=== PATIENT | male | born 1970 | race Caucasian/White ===

== ENCOUNTER 2024-03-12 16:05 | Emergency (ER) | payer BC, SELFPAY ==
[2024-03-12 16:06] VITALS: BP 133/65
--- NOTE | 2024-03-12 16:42 | ED.GENMED ---
History of Present Illness
<Nia Rea PA-C - Last Filed: 03/12/24 19:29>
General
Chief Complaint: Abdominal Pain
Source: patient and spouse
Exam Limitations: none
Time Seen by Provider: 03/12/24 16:10
Nursing documentation reviewed up to this point in time: agreed with
History of Present Illness
History of Present Illness:
Patient is a 53-year-old male with history diverticulitis presenting to the emergency department for evaluation of left mid abdominal pain. Patient states symptoms started yesterday evening and been relatively constant and more severe today.
Patient states he did have difficulty sleeping due to pain. Patient did have a fever of 100.9 at home. For which she did take Motrin and Tylenol prior to arrival to emergency department. Patient denies any associated nausea, vomiting, diarrhea,
or constipation. Patient denies any urinary symptoms.
Patient was seen in an urgent care facility this morning where they performed the physical exam and given symptoms were so consistent with patient's prior history of diverticulitis he was started on course of ciprofloxacin/metronidazole. He has
taken 1 dose of each. He was instructed to come to the emergency department he spiked any fever. When patient arrived back home to the urgent care he had a temp of 100.9 and came to the emergency department for further evaluation.
Patient does have a history of diverticulitis�last flare occurring approximately 9 years ago. Patient does state this feels very similar to prior flare of diverticulitis
Past History
<Nia Rea PA-C - Last Filed: 03/12/24 19:29>
Past History
ED Past Medical History: Other (Diverticulitis by history although he's never had a CAT scan or colonoscopy. Hypertension, back pain)
ED Past Surgical History: Other (Hernia, tonsillectomy)
Social History
Tobacco: Non-smoker
Alcohol: Occasional
Personal:
Living: with family
Employment: Employed
Family History
Family History: Other (Hypertension and glaucoma)
Phy Exam
<Nia Rea PA-C - Last Filed: 03/12/24 19:29>
Physical Exam
Physical Exam:
Vitals: Patient's vital signs are stable. Temp of 99.7F
General: Patient is mildly uncomfortable appearing due to pain, no acute distress. Nontoxic-appearing
Skin: Warm and dry, no rashes or lesions
Head: Normocephalic, atraumatic
Eyes: Sclera nonicteric. EOMs intact. No nystagmus.
Throat: Protecting airway
Neck: Normal ROM, no cervical spine tenderness, no meningismus
Cardiac: Regular rate and rhythm, no murmurs.
Pulm: Normal respiratory effort, no wheezes, rales, rhonchi heard on exam.
Abdomen: Abdomen soft. Moderate abdominal tenderness in left mid abdomen with voluntary guarding. No rebound tenderness. No CVA tenderness.
Extremities: No evidence of cyanosis or edema. Great distal pulses
Neuro: Grossly intact.
Psychiatric: Normal affect.
Course
<Nia Rea PA-C - Last Filed: 03/12/24 19:29>
Orders/Labs/Results
Orders:
Orders
03/12/24 16:28
0.9% Sodium Chloride 1000 ml [Nss] 1,000 ml IV BOLUS
Ketorolac [Toradol] 15 mg IV NOW STA
03/12/24 16:29
CT Abd/Pel (IV only)-[facility] only Urgent
Comment: hx diverticulitis
Reason For Exam: L mid/ LLQ abdominal pain
03/12/24 17:11
Complete Blood Count/With Diff Urgent
Comprehensive Metabolic Panel Urgent
Lipase Urgent
Urinalysis Reflex To Culture Urgent
Date Specimen was Collected: 03/12/24
Time Specimen was Collected: 16:37
03/12/24 17:40
Morphine Sulfate 4 mg IV NOW STA
Ondansetron Injectable [Zofran] 4 mg IV NOW STA
Abnormal Lab Results
03/12/24
17:11
RBC 4.46 L 10^6/uL
(4.70-6.10)
Hct 38.3 L %
(39.0-52.0)
MCH 31.6 H pg
(27.0-31.0)
Absolute Neuts (auto) 8.0 H 10^3/uL
(1.4-6.5)
Absolute Lymphs (auto) 1.0 L 10^3/uL
(1.2-3.4)
Absolute Monos (auto) 0.8 H 10^3/uL
(0.1-0.6)
Neutrophils % 81.0 H %
(42.2-75.2)
Lymphocytes % 9.9 L %
(20.5-51.1)
Potassium 3.3 L mmol/L
(3.5-5.1)
Chloride 96 L mmol/L
(98-107)
Glucose 152 H mg/dl
(70-99)
Total Bilirubin 3.2 H mg/dl
(0.2-1.3)
03/12/24 17:11
03/12/24 17:11
Vital Signs
Initial and Last Documented VS:
Initial Vital Signs
Pulse Resp BP Pulse Ox
75 18 133/65 99
03/12/24 16:06 03/12/24 16:06 03/12/24 16:06 03/12/24 16:06
Last Documented Vital Signs
Temp Pulse Resp BP Pulse Ox
99.7 F 75 18 133/65 99
03/12/24 16:45 03/12/24 16:06 03/12/24 16:06 03/12/24 16:06 03/12/24 16:06
<Jennifer Johnson, DO - Last Filed: 03/12/24 18:02>
Orders/Labs/Results
Orders:
Orders
03/12/24 16:28
0.9% Sodium Chloride 1000 ml [Nss] 1,000 ml IV BOLUS
Ketorolac [Toradol] 15 mg IV NOW STA
03/12/24 16:29
CT Abd/Pel (IV only)-[facility] only Urgent
Comment: hx diverticulitis
Reason For Exam: L mid/ LLQ abdominal pain
03/12/24 17:11
Complete Blood Count/With Diff Urgent
Comprehensive Metabolic Panel Urgent
Lipase Urgent
Urinalysis Reflex To Culture Urgent
Date Specimen was Collected: 03/12/24
Time Specimen was Collected: 16:37
03/12/24 17:40
Morphine Sulfate 4 mg IV NOW STA
Ondansetron Injectable [Zofran] 4 mg IV NOW STA
Abnormal Lab Results
03/12/24
17:11
RBC 4.46 L 10^6/uL
(4.70-6.10)
Hct 38.3 L %
(39.0-52.0)
MCH 31.6 H pg
(27.0-31.0)
Absolute Neuts (auto) 8.0 H 10^3/uL
(1.4-6.5)
Absolute Lymphs (auto) 1.0 L 10^3/uL
(1.2-3.4)
Absolute Monos (auto) 0.8 H 10^3/uL
(0.1-0.6)
Neutrophils % 81.0 H %
(42.2-75.2)
Lymphocytes % 9.9 L %
(20.5-51.1)
Potassium 3.3 L mmol/L
(3.5-5.1)
Chloride 96 L mmol/L
(98-107)
Glucose 152 H mg/dl
(70-99)
Total Bilirubin 3.2 H mg/dl
(0.2-1.3)
03/12/24 17:11
03/12/24 17:11
Vital Signs
Initial and Last Documented VS:
Initial Vital Signs
Pulse Resp BP Pulse Ox
75 18 133/65 99
03/12/24 16:06 03/12/24 16:06 03/12/24 16:06 03/12/24 16:06
Last Documented Vital Signs
Temp Pulse Resp BP Pulse Ox
99.7 F 75 18 133/65 99
03/12/24 16:45 03/12/24 16:06 03/12/24 16:06 03/12/24 16:06 03/12/24 16:06
<Nia Rea PA-C - Last Filed: 03/12/24 19:29>
MDM/Problems Addressed
Differential Diagnosis Includes:
Not limited to: Uncomplicated diverticulitis, complicated diverticulitis including perforation, abscess formation, kidney stone, pyelonephritis, UTI, appendicitis, incarcerated hernia
MDM/Problems Addressed:
53-year-old male presenting with 1 day of left lower abdominal discomfort and low-grade fever at home. Seen by urgent care this morning and given prescription for 10 days of ciprofloxacin/metronidazole. He is taken 1 dose of each prior to arrival
to emergency department. Patient presents due to fever at home and concern for worsening infection/complication. No associated nausea, vomiting, diarrhea, or constipation. No urinary symptoms. Patient has a low-grade fever of 99.7 on arrival to
emergency department, otherwise vital signs are stable. Physical exam as above. Patient is in mild discomfort due to pain, otherwise well-appearing. Abdomen is soft with moderate tenderness in left mid abdomen with voluntary guarding. No rebound
tenderness. Heart regular rate and rhythm. Lungs clear bilaterally. Patient is perfusing well. Differential broad although high suspicion for acute diverticulitis given patient's history. Will check basic labs, urinalysis. Will check CT
abdomen/pelvis to rule out complication secondary to diverticulitis versus other acute intra-abdominal pathology. Will give fluids, Toradol. Will closely monitor and reassess
Chronic conditions affecting care:
History of diverticulitis
Acute Exacerbation and/or Progression of Chronic Illness:
Acute uncomplicated diverticulitis
<Nia Rea PA-C - Last Filed: 03/12/24 19:29>
*Radiology
Radiology exam reviewed: preliminary read by ED provider and radiology read reviewed
*Pulse Oximetry
Patient hypoxic: no
*EKG
Interpreted by ED Provider?: NA
*Stereoptician Interpretation
Rate: Stereoptician- N/A
*Critical Care Note
Total Time (30-74mins, 75-104mins- exclusive of procedures): Not Applicable
<Nia Rea PA-C - Last Filed: 03/12/24 19:29>
Update Note
Update Note:
Update 5:37PM: Into reassess patient at bedside. Patient still having significant discomfort with movement following Toradol. Will give low-dose morphine. CT and labs pending.
Update 5:49PM: Labs reviewed. No leukocytosis. Although there is a left shift. Mild hypokalemia. Elevation in total bilirubin to 3.2. Urine does not appear infected. CT pending.
Update: 7:27 PM: CT report reviewed 13 cm area of acute diverticulitis in mid/lower descending colon. No evidence of abscess, perforation. Although longer segment of bowel involved�it seems to be uncomplicated diverticulitis. Did discuss
admission versus discharge with patient who is eager for discharge home. Patient has remained well-appearing, stable, with no leukocytosis. patient will be discharged with pain control. Instructed to continue ciprofloxacin/metronidazole as
prescribed by urgent care. Very close return precautions discussed. Patient is comfortable with plan and will return with any acute worsening/failure to improve. Case discussed and seen with attending physician.
ED Attending Note
<Nia Rea PA-C - Last Filed: 03/12/24 19:29>
-
Portions of this chart may have been created with voice recognition software.� Occasional wrong word or��sound alike� substitutions may have occurred due to the inherent limitations of voice recognition software.
<Jennifer Johnson, - Last Filed: 03/12/24 18:02>
ED Attending Note
Patient seen and examined by attending physician: Yes
I performed the substantive portion of visit, reviewed & personally made and approve the management plan that is documented in note by myself or ARIEL.: Yes
I performed a history and physical exam of patient and discussed management with resident, I reviewed resident's note and agree with documented findings and plan of care.: Yes
ED Attending Note:
Patient seen and examined at bedside, 53-year-old male with prior history of diverticulitis presenting for abdominal pain. Patient reports symptoms started yesterday, notes history of diverticulitis in the past and symptoms felt similar to that
episode. He went to urgent care today, was prescribed Cipro and Flagyl. He took 1 dose, however when he got home, spiked a fever which concerned him and prompted him to come to the hospital. Notes some diarrhea, denies any vomiting. Denies chest
pain or difficulty breathing. Reports history of umbilical hernia repair in the past, otherwise no significant surgeries. Vital signs on arrival are normal.
On exam patient is well-appearing, nontoxic. On abdominal exam, focal tenderness to the left lower quadrant without rebound or guarding. Suspect uncomplicated diverticulitis. Will screen with laboratory analysis and obtain CT imaging to ensure no
complicating features.
Discharge Plan
Departure
Patient Disposition: Home (Routine Discharge)
Date of Disposition: 03/12/24
Time of Disposition: 19:26
Patient with high blood pressure during this ER visit?: No
Covid-19: Not Applicable
Discharge Problem:
Acute diverticulitis
Instructions: Clear Liquid Diet, Low Fiber Diet, Diverticulitis (DC)
Prescriptions:
New
oxycodone-acetaminophen [Percocet] 5-325 mg tablet
1 tab PO Q6HPRN PRN (Reason: pain) Qty: 7 0RF
ondansetron 4 mg tablet,disintegrating
4 mg PO TIDPRN PRN (Reason: nausea/vomiting) Qty: 7 0RF
No Action
hydrocortisone acetate 25 MG suppository
25 mg CA BID Qty: 14 0RF
prednisone 20 MG tablet
40 mg PO DAILY Qty: 8 0RF
mupirocin [Bactroban] 22 GM ointment
22 gm TP BID Qty: 1 0RF
oxycodone 5 MG tablet
5 mg PO Q4HPRN PRN (Reason: moderate to severe pain) Qty: 14 0RF
oxycodone-acetaminophen [Percocet] 5-325 mg tablet
1 tab PO Q4HPRN PRN (Reason: pain) Qty: 17 0RF
cyclobenzaprine 10 mg tablet
10 mg PO TID PRN (Reason: PAIN) Qty: 14 0RF
methylprednisolone [Medrol (Javier)] 4 mg tablets,dose pack
4 mg PO DAILY Qty: 21 0RF
Referrals:
Jameel Esteves DO [Family Provider] - Follow up in 5-7 days
Activity Restrictions/Additional Instructions:
RETURN TO THE EMERGENCY DEPARTMENT WITH ANY FEVERS, CHILLS, SEVERE/WORSENING ABDOMINAL PAIN, INTRACTABLE NAUSEA, VOMITING, WORSENING IN CURRENT SYMPTOMS, OR ANY OTHER CONCERNS
-As discussed�your CT scan showed findings consistent with an uncomplicated diverticulitis. You should continue to take the antibiotics as prescribed by the urgent care. Do not drink any alcohol while taking the metronidazole.
-You should take Motrin and/or Tylenol as needed for any discomfort. I have sent a prescription for Percocet that you can take for severe, intractable pain. This may cause drowsiness you should not take prior to driving.
-You should adhere to a clear liquid diet over the next 2 to 3 days and advance to a low fiber diet as tolerated while infection clears. Stay well-hydrated.
-Follow-up with your primary care provider for further evaluation/management to ensure that symptoms are improving
Monitor your symptoms closely and return to the emergency department with any acute worsening/new symptoms
Interventions
Interventions:
*Risk Screen - Suicide Last Done: 03/12/24 16:06
*General Assessment Last Done: 03/12/24 16:06
*Neglect/Abuse Screening Last Done: 03/12/24 16:06
ED- Fall Risk Assessment Last Done: 03/12/24 17:14
*ED COVID-19 Vaccine History Last Done: 03/12/24 16:06
[facility]-Ftlzuiatvw Assessment Last Done: 03/12/24 17:14
Discharge Date and Time
Print Language: DIVEHI
[2024-03-12] MEDS: TORADOL 15 MG IV (17:10)
[2024-03-12] MEDS: NSS 1000 IV (17:11)
[2024-03-12 17:22] LABS: % Basophils 0.3 % (0-2); % Eosinophils 0.2 % (0-6); % Immature Granulocytes 0.3 % (0-0.5); % Lymphocytes 9.9 % (20.5-51.1); % Monocytes 8.3 % (1.7-9.3); Absolute Monocytes 0.8 10^3/uL (0.1-0.6); Hematocrit 38.3 % (39.0-52.0); Hemoglobin 14.1 g/dL (13.0-18.0); Mean Corp Hgb Conc. 36.8 g/dL (33.0-37.0); Mean Corpuscular Hgb 31.6 pg (27.0-31.0); Mean Corpuscular Volume 85.9 fL (80.0-94.0); Mean Platelet Volume 9.9 fL (7.4-10.4); Nucleated Red Blood Cells % 0 % (-); Platelet Count 208 10^3/uL (130-400); Red Blood Cell Count 4.46 10^6/uL (4.70-6.10); Red Cell Dist. Width 11.9 % (11.5-14.5); White Blood Cell Count 9.8 10^3/uL (4.8-10.8)
[2024-03-12 17:25] VITALS: BMI 34.0
[2024-03-12 17:37] LABS: ALT (SGPT) 29 U/L (0-50); AST (SGOT) 30 U/L (17-59); Albumin 4.2 g/dl (3.5-5.0); Alkaline Phosphatase 96 U/L (38-126); Blood Urea Nitrogen 17 mg/dl (9-20); Calcium 9.2 mg/dl (8.4-10.2); Carbon Dioxide 25 mmol/L (22-30); Chloride 96 mmol/L (98-107); Estimated Creatinine Clearance 103 ml/min; Glucose 152 mg/dl (70-99); Potassium 3.3 mmol/L (3.5-5.1); Sodium 136 mmol/L (135-145); Total Bilirubin 3.2 mg/dl (0.2-1.3); Total Protein 6.8 g/dl (6.3-8.2); eGFR > 60.00
[2024-03-12 17:42] LABS: Lipase 79 U/L (23-300)
[2024-03-12 17:44] LABS: Urine Albumin Negative (Neg - Trace); Urine Bilirubin Negative (Negative); Urine Character Clear (Clear); Urine Color Yellow; Urine Glucose Negative (Negative); Urine Ketone Negative (Negative); Urine Leukocyte Negative (Negative); Urine Nitrite Negative (Negative); Urine Occult Blood Negative (Negative); Urine Specific Gravity 1.005 (<1.030); Urine Urobilinogen Negative (Neg - 1+)
[2024-03-12] MEDS: ZOFRAN 4 MG IV (17:49)
[2024-03-12] MEDS: MORPHINE SULFATE 4 MG IV (17:49)
[2024-03-12] MEDS: PERCOCET 5/325 1 TABLET PO (19:36)
[2024-03-12 19:44] VITALS: BP 143/89
== END 2024-03-12 19:47 | disposition home or self-care (01) ==
LOC: EMR 16:05
PROVIDERS: Physician Assistant; EMERGENCY PHYSICIAN Student in an Organized Health Care Education/Training Program; FAMILY PHYSICIAN Internal Medicine
DX: K57.32 Diverticulitis of large intestine without perforation or abscess without bleeding (principal); E87.6 Hypokalemia; I10 Essential (primary) hypertension; Z82.49 Family history of ischemic heart disease and other diseases of the circulatory system
CPT/HCPCS: 99284; 74177; 80053; 81003; 83690; 85025; Q9967